=== PATIENT | female | born 1970 | race Two or more races ===

== ENCOUNTER 2020-08-18 15:00 | Emergency (ER) | payer OTHER ==
[~2020-08-18] VITALS: Ht 170.2 cm; Wt 74.8 kg
--- NOTE | 2020-08-18 15:08 | NUR ---
YOEL FROM WORK TO ER BED 12. AAOX4. NOT IN RESP DISTRESS. 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 PT IS A PHYSICAL THERAPIST. PAIN IS 7/10 SHARP THROBBING. PT WAS GIVEN TORADOL 30MG IM GASTROENTEROLOGY NURSE WHICH PT VERBALIZED THAT IS HELPING. PT IS BED UNABLE TO MOVE D/T PAIN. AWAITING MD FOR EVAL.
[2020-08-18] MEDS ORDERED: HYDROCODONE/APAP 5/325MG TABLET PO ONE (16:00)
[2020-08-18] MEDS ORDERED: DEXAMETHASONE 1 MG TABLET PO ONE (16:00)
[2020-08-18] MEDS ORDERED: KETOROLAC TROMETHAMINE INJ 30 MG/ML VIAL IM ONE (16:00)
[2020-08-18] MEDS ORDERED: METHOCARBAMOL (500MG) 500 MG TABLET PO ONE (16:00)
[2020-08-18] MEDS ORDERED: DEXAMETHASONE SOD PHOSPHATE 10 MG/ML VIAL IV ONE (16:30)
[2020-08-18] MEDS ORDERED: KETOROLAC TROMETHAMINE INJ 30 MG/ML VIAL ONE (16:41)
[2020-08-18] MEDS ORDERED: HYDROCODONE/APAP 5/325MG TABLET ONE (16:41)
[2020-08-18] MEDS ORDERED: METHOCARBAMOL (500MG) 500 MG TABLET ONE (16:41)
[2020-08-18] MEDS ORDERED: DEXAMETHASONE SOD PHOSPHATE 10 MG/ML VIAL ONE (16:41)
--- NOTE | 2020-08-18 19:38 | NUR ---
Patient discharged to home in stable condition. Written and verbal after care instructions given. Patient verbalizes understanding of instruction. Pt ambulatory with a steady gait
[2020-08-18 19:39] VITALS: BP 123/65
== END 2020-08-18 19:39 | disposition home or self-care (01) ==
LOC: ER 15:00
DX: S39.012A Strain of muscle, fascia and tendon of lower back, initial encounter (principal); Z60.2 Problems related to living alone; X50.0XXA Overexertion from strenuous movement or load, initial encounter; Y93.89 Activity, other specified; Y92.89 Other specified places as the place of occurrence of the external cause; Y99.0 Civilian activity done for income or pay
CPT/HCPCS: 72131; 96372 ×2; 99284; J1100; J1885